=== PATIENT | male | born 1970 | race African-American/Black ===

== ENCOUNTER 2016-07-31 13:22 | Inpatient (IN) | payer OTHER ==
[2016-07-31 14:35] VITALS: BMI 40.7
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
[2016-07-31] MEDS ORDERED: guaiFENesin/D-METHORPHAN HB 10 ML UNIT-DOSE CUPS PO PRN (18:58)
[2016-07-31] MEDS ORDERED: MENTHOL/PHENOL 1 EACH UD MM PRN (18:58)
[2016-07-31] MEDS ORDERED: MAGNESIUM HYDROX 2400MG/30ML ORAL SUSPENSION 30 ML CUP PO PRN (18:58)
[2016-07-31] MEDS ORDERED: IBUPROFEN 400 MG TABLET (FP) PO PRN (18:58)
[2016-07-31] MEDS ORDERED: P-EPHED 60MG/TRIPROLIDI 2.5MG TABLET PO PRN (18:58)
[2016-07-31] MEDS ORDERED: ACETAMINOPHEN 325 MG TABLET (FP) PO PRN (18:58)
[2016-07-31] MEDS ORDERED: MAGNESIUM CITRATE 300 ML BOTTLE PO PRN (18:58)
[2016-07-31] MEDS ORDERED: LOPERAMIDE HCL 2 MG CAPSULE PO PRN (18:58)
[2016-07-31] MEDS ORDERED: chlordiazePOXIDE HCL 25 MG CAPSULE PO PRN (18:58)
[2016-07-31] MEDS ORDERED: chlordiazePOXIDE HCL 25 MG CAPSULE PO ONE (18:58)
[2016-07-31] MEDS ORDERED: hydrOXYzine PAMOATE 50 MG CAPSULE (FP) PO PRN (18:58)
[2016-07-31] MEDS ORDERED: MAG HYDROX/AL HYDROX/SIMETH 30 ML UNIT-DOSE CUP PO PRN (18:58)
[2016-07-31] MEDS ORDERED: cloNIDine HCL 0.1 MG TABLET PO ONE (19:02)
[2016-07-31] MEDS: HYDROCHLOROTHIAZIDE 25 MG TABLET (FP) PO SCH (20:05)
[2016-07-31] MEDS: THIAMINE HCL 100 MG TABLET (FP) PO SCH (22:45)
[2016-07-31] MEDS: chlordiazePOXIDE HCL 25 MG CAPSULE PO SCH (22:45)
[2016-07-31] MEDS: diphenhydrAMINE HCL 50 MG CAPSULE PO PRN (22:47)
[2016-08-01] MEDS: chlordiazePOXIDE HCL 25 MG CAPSULE PO SCH ×4 (06:28→22:31)
[2016-08-01 10:14] LABS: MCH 27.8 pg (25.7-33.7); MCHC 31.7 g/dl (32.0-35.9); MEAN CELL VOLUME 87.5 fl (80-96); MEAN PLT VOLUME 9.3 fl (7.5-11.1); PLATELET COUNT 296 K/MM3 (134-434); WHITE BLOOD COUNT 7.4 K/mm3 (4.0-10.0)
[2016-08-01 10:52] LABS: HIV 1 & 2 AB NEGATIVE; HIV 1 AGp24 NEGATIVE
[2016-08-01] MEDS: PRENATAL VITAMINS W/ FOLIC ACID TABLET (FP) PO SCH (10:52)
[2016-08-01 10:53] LABS: ALK PHOS 95 U/L (45-117); ANION GAP 13 (8-16); BILIRUBIN,TOTAL 0.6 mg/dL (0.2-1.0); CALCIUM 9.2 mg/dL (8.5-10.1); CO2 26 mmol/L (21-32); CREATININE 0.9 mg/dL (0.7-1.3); GLUCOSE,RANDOM 96 mg/dL (74-106); SGOT/AST 41 U/L (15-37); SGPT/ALT 41 U/L (12-78); TOT PROT 8.5 g/dl (6.4-8.2)
[2016-08-01] MEDS: HYDROCHLOROTHIAZIDE 25 MG TABLET (FP) PO SCH (10:53)
[2016-08-01] MEDS: FLUTICASONE PROP 0.05% 16 GM NASAL SPRAY NS SCH ×2 (10:56→22:32)
--- NOTE | 2016-08-01 12:25 | PN ---
S CIWA - CIWA Score Nausea/Vomitin Muscle Tremors: 2 Anxiety: 3 Agitation: 3 Paroxysmal Sweats: 3 Orientation: 0-Oriented Tacttile Disturbances: 1-Very Mild Itch/Numbness Auditory Disturbances: 0-None Visual Disturbances: 0-None Headache: 0-None Present CIWA-Ar Total Score: 15 BHS Progress Note (SOAP) Subjective: interrupted sleep, sweats, decreased appetite, nasal congestion Objective: 08/01/16 12:24 Vital Signs Temperature 98.4 F 08/01/16 06:41 Pulse Rate 93 H 08/01/16 06:41 Respiratory Rate 20 08/01/16 06:41 Blood Pressure 137/96 08/01/16 06:41 O2 Sat by Pulse Oximetry (%) Laboratory Tests 07/31/16 08/01/16 08/01/16 08:00 06:00 06:00 WBC 7.4 RBC 5.51 Hgb 15.3 Hct 48.2 MCV 87.5 MCHC 31.7 L RDW 15.0 Plt Count 296 MPV 9.3 Sodium 143 Potassium 4.2 Chloride 104 Carbon Dioxide 26 Anion Gap 13 BUN 10 Creatinine 0.9 Creat Clearance w eGFR > 60 Random Glucose 96 Calcium 9.2 Total Bilirubin 0.6 AST 41 H ALT 41 Alkaline Phosphatase 95 Total Protein 8.5 H Albumin 4.0 RPR Titer HIV 1&2 Antibody Screen Negative HIV P24 Antigen Negative 08/01/16 06:00 WBC RBC Hgb Hct MCV MCHC RDW Plt Count MPV Sodium Potassium Chloride Carbon Dioxide Anion Gap BUN Creatinine Creat Clearance w eGFR Random Glucose Calcium Total Bilirubin AST ALT Alkaline Phosphatase Total Protein Albumin RPR Titer Nonreactive HIV 1&2 Antibody Screen HIV P24 Antigen pt aox3 in nad ambulating in wheel chair 08/01/16 12:25 Assessment: 08/01/16 12:24 withdrawal sx;s 08/01/16 12:26 rt bka Plan: cont. detox increase fluids flonase
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
[2016-08-01] MEDS: diphenhydrAMINE HCL 50 MG CAPSULE PO PRN (22:32)
[2016-08-01] MEDS: THIAMINE HCL 100 MG TABLET (FP) PO SCH (22:32)
[2016-08-02] MEDS: chlordiazePOXIDE HCL 25 MG CAPSULE PO SCH ×3 (05:17→17:17)
[2016-08-02] MEDS: PRENATAL VITAMINS W/ FOLIC ACID TABLET (FP) PO SCH (11:00)
[2016-08-02] MEDS: HYDROCHLOROTHIAZIDE 25 MG TABLET (FP) PO SCH (11:00)
[2016-08-02] MEDS: FLUTICASONE PROP 0.05% 16 GM NASAL SPRAY NS SCH ×2 (11:00→22:55)
--- NOTE | 2016-08-02 11:50 | PN ---
[facility] CIWA - CIWA Score Nausea/Vomitin Muscle Tremors: 3 Anxiety: 3 Agitation: 2 Paroxysmal Sweats: 1-Minimal Palms Moist Orientation: 0-Oriented Tacttile Disturbances: 1-Very Mild Itch/Numbness Auditory Disturbances: 1-Very Mild Visual Disturbances: 1-Very Mild Sensitivity Headache: 2-Mild CIWA-Ar Total Score: 17 S Progress Note (SOAP) Subjective: ALERT,IRRITABLE,ANXIOUS,TREMOR,INTERRUPTED SLEEP,PAIN IN THE BODY Objective: 08/02/16 11:47 Vital Signs Temperature 98.4 F 08/02/16 10:23 Pulse Rate 109 H 08/02/16 10:23 Respiratory Rate 20 08/02/16 10:23 Blood Pressure 139/93 08/02/16 10:23 O2 Sat by Pulse Oximetry (%) EKG NSR,INVERTED T IN 2,3,AVF,V2 TO V6,SINUS TACHYCARDIA 101 NO CHEST PAIN,NO SOB,NO DIZZINESS Laboratory Last Values WBC 7.4 K/mm3 (4.0-10.0) 08/01/16 06:00 RBC 5.51 M/mm3 (4.00-5.60) 08/01/16 06:00 Hgb 15.3 GM/dL (11.7-16.9) 08/01/16 06:00 Hct 48.2 % (35.4-49) 08/01/16 06:00 MCV 87.5 fl (80-96) 08/01/16 06:00 MCHC 31.7 g/dl (32.0-35.9) L 08/01/16 06:00 RDW 15.0 % (11.9-15.9) 08/01/16 06:00 Plt Count 296 K/MM3 (134-434) 08/01/16 06:00 MPV 9.3 fl (7.5-11.1) 08/01/16 06:00 Sodium 143 mmol/L (136-145) 08/01/16 06:00 Potassium 4.2 mmol/L (3.5-5.1) 08/01/16 06:00 Chloride 104 mmol/L (98-107) 08/01/16 06:00 Carbon Dioxide 26 mmol/L (21-32) 08/01/16 06:00 Anion Gap 13 (8-16) 08/01/16 06:00 BUN 10 mg/dL (7-18) 08/01/16 06:00 Creatinine 0.9 mg/dL (0.7-1.3) 08/01/16 06:00 Creat Clearance w eGFR > 60 (>60) 08/01/16 06:00 Random Glucose 96 mg/dL (74-106) 08/01/16 06:00 Calcium 9.2 mg/dL (8.5-10.1) 08/01/16 06:00 Total Bilirubin 0.6 mg/dL (0.2-1.0) 08/01/16 06:00 AST 41 U/L (15-37) H 08/01/16 06:00 ALT 41 U/L (12-78) 08/01/16 06:00 Alkaline Phosphatase 95 U/L (45-117) 08/01/16 06:00 Total Protein 8.5 g/dl (6.4-8.2) H 08/01/16 06:00 Albumin 4.0 g/dl (3.4-5.0) 08/01/16 06:00 RPR Titer Nonreactive (NONREACTIVE) 08/01/16 06:00 HIV 1&2 Antibody Screen Negative 07/31/16 08:00 HIV P24 Antigen Negative 07/31/16 08:00 Assessment: 08/02/16 11:50 WITHDRAWAL SYMPTOM Plan: CONTINUE DETOX
--- NOTE | 2016-08-02 11:57 | EKG ---
Test Reason : Blood Pressure : / mmHG Vent. Rate : 101 BPM Atrial Rate : 101 BPM P-R Int : 120 ms QRS Dur : 084 ms QT Int : 364 ms P-R-T Axes : 049 -14 195 degrees QTc Int : 471 ms SINUS TACHYCARDIA ABNORMAL ECG WHEN COMPARED WITH ECG OF 31-JUL-2016 19:10, NO SIGNIFICANT CHANGE WAS FOUND Confirmed by VICKIE MERCHANT MD ([id number]) on 08/02/2016 11:56:35 AM Referred By: Confirmed By:VICKIE MERCHANT MD
--- NOTE | 2016-08-02 11:57 | EKG ---
Test Reason : Blood Pressure : / mmHG Vent. Rate : 094 BPM Atrial Rate : 094 BPM P-R Int : 118 ms QRS Dur : 086 ms QT Int : 372 ms P-R-T Axes : 043 -21 197 degrees QTc Int : 465 ms NORMAL SINUS RHYTHM WITH SINUS ARRHYTHMIA POSSIBLE LEFT ATRIAL ENLARGEMENT PROLONGED QT ABNORMAL ECG NO PREVIOUS ECGS AVAILABLE Confirmed by VICKIE MERCHANT MD ([id number]) on 08/02/2016 11:57:35 AM Referred By: Confirmed By:VICKIE MERCHANT MD
[2016-08-02 14:14] LABS: URINE APPEARANCE CLOUDY; URINE BILIRUBIN NEGATIVE (NEGATIVE); URINE BLOOD NEGATIVE (NEGATIVE); URINE COLOR DKYELLOW; URINE GLUCOSE (UA) NEGATIVE (NEGATIVE); URINE KETONE NEGATIVE (NEGATIVE); URINE LEUK ESTERASE 3+ (NEGATIVE); URINE NITRITE NEGATIVE (NEGATIVE); URINE PROTEIN NEGATIVE (NEGATIVE); URINE UROBILINOGEN 2.0 E.U/dl E.U./dl (0.2-1.0)
[2016-08-02 14:17] LABS: URINE MUCUS MANY; URINE RBC 14 /hpf (0-3); URINE WBC 200 /hpf (3-5)
[2016-08-02] MEDS: THIAMINE HCL 100 MG TABLET (FP) PO SCH (22:55)
[2016-08-02] MEDS: SULFAMETHOXAZOLE/TRIMETHOPRIM 800MG/160MG D.S. TABLET PO SCH (22:55)
[2016-08-02] MEDS: chlordiazePOXIDE 5 MG CAPSULE PO SCH (22:55)
[2016-08-03] MEDS: chlordiazePOXIDE 5 MG CAPSULE PO SCH ×3 (05:25→17:55)
--- NOTE | 2016-08-03 11:16 | PN ---
S Progress Note (SOAP) Subjective: ALERT,IRRITABLE,ANXIOUS,INTERRUPTED SLEEP Objective: 08/03/16 11:15 Vital Signs Temperature 98.2 F 08/03/16 09:54 Pulse Rate 101 H 08/03/16 09:54 Respiratory Rate 18 08/03/16 09:54 Blood Pressure 138/89 08/03/16 09:54 O2 Sat by Pulse Oximetry (%) Assessment: 08/03/16 11:15 WITHDRAWAL SYMPTOM Plan: CONTINUE DETOX,DISCHARGE IN AM
[2016-08-03] MEDS: SULFAMETHOXAZOLE/TRIMETHOPRIM 800MG/160MG D.S. TABLET PO SCH ×2 (11:27→22:06)
[2016-08-03] MEDS: PRENATAL VITAMINS W/ FOLIC ACID TABLET (FP) PO SCH (11:27)
[2016-08-03] MEDS: HYDROCHLOROTHIAZIDE 25 MG TABLET (FP) PO SCH (11:27)
[2016-08-03] MEDS: FLUTICASONE PROP 0.05% 16 GM NASAL SPRAY NS SCH ×2 (11:27→22:04)
[2016-08-03] MEDS: chlordiazePOXIDE HCL 10 MG CAPSULE PO SCH (22:04)
[2016-08-03] MEDS: THIAMINE HCL 100 MG TABLET (FP) PO SCH (22:05)
[2016-08-03] MEDS: diphenhydrAMINE HCL 50 MG CAPSULE PO PRN (23:24)
[2016-08-04] MEDS: chlordiazePOXIDE HCL 10 MG CAPSULE PO SCH (05:45)
[2016-08-04 05:58] VITALS: BP 136/75; PULSE 102; TEMP 96.4
--- NOTE | 2016-08-04 07:55 | PN ---
BHS Progress Note (SOAP) Subjective: ALERT,NO COMPALINT Objective: 08/04/16 07:54 Vital Signs Temperature 96.4 F L 08/04/16 05:57 Pulse Rate 102 H 08/04/16 05:57 Respiratory Rate 20 08/04/16 05:57 Blood Pressure 136/75 08/04/16 05:57 O2 Sat by Pulse Oximetry (%) Assessment: 08/04/16 07:54 DETOX COMPLETE,NO WITHDRAWAL SYMPTOM Plan: DICHARGE TODAY,FOLLOW UP WITH AFTER CARE PROGRAM ARRANGEMENT
--- NOTE | 2016-08-04 08:01 | DS ---
[facility] Detox Discharge Summary Admission Date: 07/31/16 Discharge Date: 08/04/16 - History Present History: Alcohol Dependence, Cocaine Dependence Additional Comments: FOLLOW UP WITH [facility] PROGRAM ARRANGEMENT AND PMD FOR MEDICAL PROBLEM Pertinent Past History: HYPERTENSION S/P BELOW KNEE AMPUTATION RIGHT BIPOLAR DISORDER WHEELCHAIR DEPENDENCE - Physical Exam Results Vital Signs: Vital Signs Temperature 96.4 F L 08/04/16 05:57 Pulse Rate 102 H 08/04/16 05:57 Respiratory Rate 20 08/04/16 05:57 Blood Pressure 136/75 08/04/16 05:57 O2 Sat by Pulse Oximetry (%) Pertinent Admission Physical Exam Findings: WITHDRAWAL SYMPTOM - Treatment Hospital Course: Detox Protocol Followed, Detoxed Safely, Responded well, Discharged Condition Good - Medication Discharge Medications: Ambulatory Orders Hydrochlorothiazide [Hctz -] 25 mg PO DAILY 07/31/16 - Diagnosis (1) Alcohol dependence with uncomplicated withdrawal Current Visit: Yes Status: Acute (2) Cocaine dependence Current Visit: Yes Status: Acute (3) Hypertension Current Visit: Yes Status: Chronic (4) History of right below knee amputation Current Visit: Yes Status: Chronic (5) Bipolar disorder Current Visit: Yes Status: Chronic (6) Wheelchair dependence Current Visit: Yes Status: Chronic - AMA Did Patient Leave Against Medical Advice: No
[2016-08-04] MEDS: SULFAMETHOXAZOLE/TRIMETHOPRIM 800MG/160MG D.S. TABLET PO SCH (09:32)
[2016-08-04] MEDS: PRENATAL VITAMINS W/ FOLIC ACID TABLET (FP) PO SCH (09:32)
[2016-08-04] MEDS: HYDROCHLOROTHIAZIDE 25 MG TABLET (FP) PO SCH (09:32)
== END 2016-08-04 10:07 | disposition home or self-care (01) | DRG 774 ==
LOC: YASAS 13:22 → Y6N 18:34
PROVIDERS: ADMIT Internal Medicine Addiction Medicine; ATTEND Internal Medicine Addiction Medicine
PROC: HZ2ZZZZ Detoxification Services for Substance Abuse Treatment (ICD-10-PCS; principal; 2016-07-31)
DX: F10.230 Alcohol dependence with withdrawal, uncomplicated (principal); F14.20 Cocaine dependence, uncomplicated; F31.9 Bipolar disorder, unspecified; I10 Essential (primary) hypertension; J45.909 Unspecified asthma, uncomplicated; R00.0 Tachycardia, unspecified; Z89.511 Acquired absence of right leg below knee; Z99.3 Dependence on wheelchair; Z87.39 Personal history of other diseases of the musculoskeletal system and connective tissue; Z87.891 Personal history of nicotine dependence
CPT/HCPCS: 36415; 80053; 81003; 81015; 85027; 86593; 87389; 93005; 93010